=== PATIENT | male | born 1945 | race Caucasian/White ===

== ENCOUNTER 2017-04-04 19:25 | Emergency (ER) | payer OTHER, MEDICARE, MEDICAID ==
[2017-04-04] MEDS ORDERED: Albuterol/Ipratropium 3.0-0.5 MG/3 ML Neb Soln NEB ONE ×2 (19:30→19:45)
[2017-04-04] MEDS ORDERED: Albuterol/Ipratropium 3.0-0.5 MG/3 ML Neb Soln ONE ×2 (19:34→19:45)
[2017-04-04] MEDS ORDERED: Sodium Chloride 0.9% 1,000 ML IV ONE ×2 (19:55→20:20)
[2017-04-04] MEDS ORDERED: methylPREDNISolone Sodium Succinate 125 MG/2 ML SDV IVPUSH ONE (20:04)
--- NOTE | 2017-04-04 20:04 | EDM.PDOC ---
ED HPI GENERAL MEDICAL PROBLEM - General Stated Complaint: SHORTNESS OF BREATH Time Seen by Provider: 04/04/17 19:32 Source of Information: Reports: Patient, EMS, Family (friend) History Limitations: Reports: Altered Mental Status, Respiratory Distress - History of Present Illness INITIAL COMMENTS - FREE TEXT/NARRATIVE: Patient brought to ER via ambulance with severe COPD exacerbation. He was home alone lying on the floor using his CPAP to help his breathing for a couple hours before coming in. He is struggling quite a bit to breathe and his level of consciousness is deteriorating noticeably. - Related Data Allergies Allergy/AdvReac Type Severity Reaction Status Date / Time No Known Drug Allergies Allergy Other Verified 12/24/15 10:48 Home Meds: Home Meds Albuterol Sulfate [Proair Respiclick] 2 puff INH Q4H PRN 06/05/15 [History] Budesonide/Formoterol [Symbicort 160-4.5 MCG] 2 puff INH BID 09/18/15 [History] Metoprolol Tartrate [Lopressor] 12.5 mg PO Q12HR 09/18/15 [History] Tiotropium [Spiriva HandiHaler] 1 cap INH DAILY 09/18/15 [History] Albuterol Sulfate 1 dose INH TID PRN 12/22/15 [History] Dabigatran Etexilate Mesylate [Pradaxa] 150 mg PO BID 12/22/15 [History] LORazepam 0.5 mg PO BEDTIME 12/22/15 [History] Nicotine Polacrilex [Nicotine Lozenge] 2 mg PO Q4H PRN 12/22/15 [History] Omeprazole 20 mg PO BID 12/22/15 [History] Simethicone [Gas-X Ultra Strength] 1 cap PO Q6H PRN 12/22/15 [History] Simvastatin [Zocor] 20 mg PO BEDTIME 12/22/15 [History] predniSONE [Prednisone] 2.5 mg PO DAILY 12/22/15 [History] GI Cocktail 30 ml PO ONETIME #1 bottle 12/23/15 [Rx] Past Medical History HEENT History: Reports: Impaired Vision Cardiovascular History: Reports: Arrhythmia, High Cholesterol, Hypertension, SOB on Exertion Other Cardiovascular History: atrial flutter Respiratory History: Reports: COPD Gastrointestinal History: Reports: Other (See Below) Other Gastrointestinal History: denies having GERD or hiatal hernia. States he beches alot and then he gets short of breath. Has had a gastroscopy. Is on omeprazole twice a day Psychiatric History: Reports: Anxiety - Infectious Disease History Infectious Disease History: Reports: Chicken Pox - Past Surgical History HEENT Surgical History: Reports: None Respiratory Surgical History: Reports: None GI Surgical History: Reports: Colonoscopy Social & Family History - Family History Family Medical History: Noncontributory - Tobacco Use Smoking Status *Q: Former Smoker Years of Tobacco use: 40 Packs/Tins Daily: 0.5 Used Tobacco, but Quit: Yes Month Tobacco Last Used: June Second Hand Smoke Exposure: Yes - Recreational Drug Use Recreational Drug Use: No - Living Situation & Occupation Living situation: Reports: Alone Occupation: Retired ED ROS GENERAL - Review of Systems Review Of Systems: Unable To Obtain ED EXAM, GENERAL - Physical Exam Exam: See Below Exam Limited By: Respiratory Distress General Appearance: Obtunded Eye Exam: Bilateral Eye: PERRL Nose: No Blood Throat/Mouth: No Airway Compromise, Perioral Cyanosis Head: Atraumatic, Normocephalic Neck: Full Range of Motion Respiratory/Chest: Respiratory Distress, Decreased Breath Sounds, Accessory Muscle Use, Retractions Cardiovascular: Regular Rate, Rhythm, No Edema, No Murmur, Other (peripheral pulses are weak to mostly non-existent.) Peripheral Pulses: 2+: Carotid (L), Carotid (R) GI/Abdominal: Soft Neurological: Slow to Respond (initially; then unresponsive with eyes barely open) Skin Exam: Warm, Dry, Cyanosis ED RESPIRATORY PROCEDURES - Endotracheal Intubation ET Intubation Indication: Respiratory Failure Anesthesia Meds: Etomidate, Succinylcholine Placement: Orotracheal Cords Visualized: Yes Number of Attempts: 1 Confirmed By: CO2 Indicator, Bilateral Breath Sounds, Chest Xray Tube Secured By: By RT Course - Orders/Labs/Meds Meds: Medications Discontinued Medications Generic Name Dose Route Start Last Admin Trade Name Edgard PRN Reason Stop Dose Admin Albuterol/Ipratropium Confirm 04/04/17 19:34 Duoneb 3.0-0.5 Mg/3 Ml Administered 04/04/17 19:35 Dose 3 ml .ROUTE .STK-MED ONE Albuterol/Ipratropium Confirm 04/04/17 19:45 Duoneb 3.0-0.5 Mg/3 Ml Administered 04/04/17 19:46 Dose 3 ml .ROUTE .STK-MED ONE - Re-Assessments/Exams Free Text/Narrative Re-Assessment/Exam: 04/04/17 19:[address] Lucas (director digital sales) at [facility] in [place] who accepted for transfer. Pt has been intubated using RSI. Sats were in the mid-70's on 10 liters. Following duoneb and 12 liters of O2 sats were improved to low 90's but patient was still struggling to breathe and becoming more lethargic. Helicopter is on the way. 04/04/17 20:22 Patient's color improved gradually following intubation and O2 sats in the 90' s. Solumedrol 125 mg IV given as recommended by Dr. Lucas. Multiple attempts were made by lab and [facility] [facility] to draw ABGs but unsuccessful. 04/04/17 20:50 With the Trop of 1.[address] Lucas to see if he wants a bolus of heparin but he doesn't and will consult cardiology when pt gets there. WBC is 15 so blood cultures were obtained and Rocephin started. Departure - Departure Time of Disposition: 20:56 Disposition: DC/Tfer to Acute Hospital 02 Condition: Poor Clinical Impression: COPD exacerbation AMI (acute myocardial infarction) Qualifiers: Myocardial infarction ST status: non-ST elevation myocardial infarction Qualified Code(s): I21.4 - Non-ST elevation (NSTEMI) myocardial infarction - Discharge Information
[2017-04-04] MEDS ORDERED: cefTRIAXone 1 GM Vial ONE (20:26)
[2017-04-04] MEDS ORDERED: cefTRIAXone 1 GM Vial IVPUSH ONE (20:27)
[2017-04-04 20:29] LABS: CHLORIDE,CL 103 mmol/L (98-115); SODIUM,NA 143 mmol/L (136-145)
[2017-04-04] MEDS ORDERED: Sodium Chloride 0.9% 2,000 ML ONE (21:45)
[2017-04-05 01:06] VITALS: BP 115/64
[2017-04-05] MEDS ORDERED: Sodium Chloride 0.9% 5 ML Syringe FLUSH PRN (02:00)
== END 2017-04-04 21:00 ==
LOC: KA.ED 19:25
DX: J44.1 Chronic obstructive pulmonary disease with (acute) exacerbation (principal); I10 Essential (primary) hypertension; E78.00 Pure hypercholesterolemia, unspecified; F41.9 Anxiety disorder, unspecified; Z87.891 Personal history of nicotine dependence; Z79.899 Other long term (current) drug therapy
CPT/HCPCS: 31500; 36415; 71010; 80053; 84484; 85025; 85610; 85730; 87040; 94640; 96361; 96374; 96375; 99285; J0696; J2930; J7030; 93005